=== PATIENT | male | born 1995 | race Caucasian/White ===

== ENCOUNTER 2022-12-28 08:27 | Outpatient (CLI) | payer OTHER, SELFPAY ==
[2022-12-28 19:03] LABS: Alanine Aminotransferase 30 U/L (6-50); Albumin Level 4.2 g/dL (3.5-5.1); Alkaline Phosphatase 66 U/L (38-126); Anion Gap 5 mmol/L (8-16); Aspartate Amino Transferase 47 U/L (17-59); Bilirubin,Total 0.4 mg/dL (0.2-1.3); Blood Urea Nitrogen 14 mg/dL (9-20); Calcium 8.8 mg/dL (8.4-10.2); Carbon Dioxide 30 mmol/L (22-30); Chloride 105 mmol/L (98-107); Cholesterol 142 mg/dL (0-200); Estimated Glomerular Filt Rate > 60; Glucose 85 mg/dL (65-110); HDL Direct 51 mg/dL; Potassium 3.9 mmol/L (3.4-5.0); Sodium 140 mmol/L (137-145); Triglycerides 61 mg/dL (<150)
[2022-12-28 19:14] LABS: Basophils Absolute Auto 0.1 K/mm3 (0.0-0.1); Basophils Percent Auto 1.3 % (0.2-1.2); Eosinophils Absolute Auto 0.4 K/mm3 (0-0.3); Eosinophils Percent Auto 6.9 % (0-4.4); Hematocrit 35.7 % (42.0-52.0); Hemoglobin 10.6 g/dL (14.0-18.0); Immature Granulocyte Absolute 0.01 K/mm3 (0.00-0.031); Immature Granulocyte Percent A 0.2 % (0-0.5); LDL Cholesterol Direct 66 mg/dL; Lymphocytes Percent Auto 29.7 % (18.3-44.2); Mean Corpuscular HGB Conc 29.7 g/dl (32-36); Mean Corpuscular Volume 80.8 fl (80-100); Mean Platelet Volume 9.8 fl (7.4-10.4); Monocytes Absolute Auto 0.6 K/mm3 (0.1-0.6); Monocytes Percent Auto 11.1 % (2.6-8.5); Neutrophils Absolute Auto 2.7 K/mm3 (1.3-6.7); Neutrophils Percent Auto 50.8 % (45.5-73.1); Platelet Count Result 305 k/mm3 (150-375); Red Blood Count 4.42 M/mm3 (4.6-6.20); Red Cell Distribution Width 13.2 % (11.5-14.5); White Blood Count 5.4 K/mm3 (4.5-10.0)
[2022-12-28 20:43] LABS: Hypochromasia 1+ (NORMAL); Platelet Estimate Adequate (Adequate); Schistocytes None Seen (NORMAL)
== END 2022-12-28 08:28 | disposition home or self-care (01) ==
PROVIDERS: PCP Family Medicine; Visit Provider Family Medicine
DX: Z00.00 Encounter for general adult medical examination without abnormal findings (principal); G57.90 Unspecified mononeuropathy of unspecified lower limb
CPT/HCPCS: 36415; 80053; 80061; 82607; 85025

== ENCOUNTER 2023-06-12 08:23 | Outpatient (CLI) | payer OTHER, SELFPAY ==
[2023-06-12 19:47] LABS: Hematocrit 34.7 % (42.0-52.0); Mean Corpuscular HGB Conc 28.8 g/dl (32-36); Mean Corpuscular Hemoglobin 22.1 pg (26-34); Mean Corpuscular Volume 76.8 fl (80-100); Mean Platelet Volume 9.9 fl (7.4-10.4); Platelet Count Result 346 k/mm3 (150-375); Red Blood Count 4.52 M/mm3 (4.6-6.20); Red Cell Distribution Width 21.9 % (11.5-14.5); White Blood Count 7.1 K/mm3 (4.5-10.0)
[2023-06-12 20:23] LABS: Alanine Aminotransferase 48 U/L (6-50); Albumin Level 4.5 g/dL (3.5-5.1); Alkaline Phosphatase 75 U/L (38-126); Aspartate Amino Transferase 43 U/L (17-59); Bilirubin,Total 0.4 mg/dL (0.2-1.3)
== END 2023-06-12 08:24 | disposition home or self-care (01) ==
LOC: ANHBWCLAB 08:23
PROVIDERS: PCP Family Medicine; Visit Provider Family Medicine
DX: D64.9 Anemia, unspecified (principal); F41.9 Anxiety disorder, unspecified; G57.90 Unspecified mononeuropathy of unspecified lower limb; K51.90 Ulcerative colitis, unspecified, without complications; B35.1 Tinea unguium
CPT/HCPCS: 36415; 80076; 85027

== ENCOUNTER 2025-03-07 15:48 | Outpatient (CLI) | payer OTHER, SELFPAY ==
--- NOTE | ~2025-03-07 | XR_ITS ---
EXAMINATION: XR chest 2V, 03/07/2025 16:00 CDT HISTORY: R05.3 - Chronic cough COMPARISON: No comparisons available. Technique: 2 views obtained. Findings: The lungs are clear, no effusion. No pneumothorax. Heart is normal size. Mediastinal and hilar contours are within normal limits. Bony thorax no acute abnormality. Impression: No acute cardiopulmonary abnormality. Reviewed, dictated and finalized at location A. Impression: No acute cardiopulmonary abnormality.
--- OUTSIDE RECORDS SUMMARY | 2025-03-07 16:12 | XMS_ITS | Clinical Summary ---
Author Organization [facility] Address [address] [place] [address] Phone Care Team Providers Care Cover Mat Machine Operator Name Role Phone Quinton Bates MD Unavailable Naseem Raymundo MD Primary Care Provider [phone] Allergies Active Allergy Reactions Criticality Noted Date Comments Azathioprine Hives,Shortness of Breath,Swelling High 12/07/2015 Nsaids Unknown 11/20/2024 Medications acetaminophen (TYLENOL) 500 MG Tablet Take by mouth. Active Calcium Carb-Cholecalci ferol 600-10 MG-MCG Tablet Take 1 Tablet by mouth daily. Active Cyanocobalamin (VITAMIN B-12) 1000 MCG Tablet Take by mouth. Active ferrous sulfate 325 (65 Fe) MG Tablet Take by mouth. 03/10/2022 Active Loperamide HCl (IMODIUM) 2 MG Tablet Take 4 mg by mouth. 04/19/2022 Active metroNIDAZOLE (FLAGYL) 500 MG Tablet 03/28/2022 Active oxyCODONE (ROXICODONE) 5 MG Tablet Take by mouth. 05/12/2022 Active Pediatric Multiple Vitamins (Chewable [facility]) Chewable Tablet Take 1 Tablet by mouth. Active traZODone (DESYREL) 50 MG Tablet Take 0.5 Tablets by mouth nightly. 15 Tablet 2 07/14/2022 Active busPIRone (BUSPAR) 5 MG Tablet Take 1 Tablet by mouth 2 times daily. 60 Tablet 2 07/14/2022 Active Active Problems Problem Noted Date Diagnosed Date Ileostomy status 03/30/2021 Ulcerative colitis 11/05/2015 Overview (03/30/2021): H/O TOTAL COLECTOMY Resolved Problems Problem Noted Date Diagnosed Date Resolved Date Colitis 09/17/2015 03/30/2021 Immunizations Immunization Administration Dates Next Due Covid-19, Mrna, Lnp-s, PF, 1 00 mcg/0.5 mL Dose (Moderna) 07/07/2020 TDAP Vaccine 06/26/2009 Family History Medical History Relation Name Comments No Known Problems Brother No Known Problems Father No Known Problems Mother No Known Problems Sister Relation Name Status Comments Brother Alive Father Mother Alive Sister Alive Social History Tobacco Use Types Packs/Day Years Used Date Smoking Tobacco: Former Cigars Smokeless Tobacco: Never Tobacco Cessation:Counseling Given: Not Answered Alcohol Use Standard Drinks/Week Comments Yes 0 (1 standard drink = 0.6 oz pur e alcohol) occasionally PHQ-2 Answer Date Recorded Total Score - Questions 1-9 0 10/2020 Sexually Active Control Partners Comments Yes Sex and Gender Information Value Date Recorded Sex Assigned at Not on file Legal Sex Male 11:28 PM CDT Gender Identity Not on file Sexual Orientation Not on file Last Filed Vital Signs Vital Sign Reading Time Taken Comments Blood Pressure 120/68 11/21/2024 1:30 AM CDT Pulse 76 11/21/2024 1:30 AM CDT Temperature 36.2 C (97.2 F) 11/21/2024 1:26 AM CDT Respiratory Rate 13 11/21/2024 1:30 AM CDT Oxygen Saturation 100% 11/21/2024 1:30 AM CDT Inhaled Oxygen Concentration - - Weight 99.8 kg (220 lb) 11/20/2024 7:33 PM CDT Height 177.8 cm (5' 10) 11/20/2024 7:33 PM CDT Body Mass Index 31.57 11/20/2024 7:33 PM CDT Plan of Treatment Health Maintenance Due Date Last Done Comments Hepatitis B Immunization (1 of 3 - 19+ 3-dose series) 2012 Td Immunization Every 10 Years (Adults With 1 Tdap) 06/26/2019 06/26/2009 Human Papillomavirus (HPV) Immunization (1 - 3-dose SCDM series) 2020 SARS-COV-2 Immunization ( season) 2025 07/03/2021, 08/07/2020, 07/20/2020, Additional history exists Respiratory Syncytial Virus (RSV) Immunization (Adult) (1 - 1-dose 75+ series) 2068 Hepatitis C Virus (HCV) Screening Completed 01/26/2016, 01/06/2016, 12/07/2015 Influenza Immunization Discontinued Meningococcal Immunization (ACWY) Aged Out No longer eligible based on patient's age to complete this topic Pneumococcal Immunization Combined Discontinued Rotavirus Immunization Aged Out No lo nger eligible based on patient's age to complete this topic Procedures Procedure Name Priority Date/Time Associated Diagnosis Comments HEPATITIS PANEL ACUTE (AHP) Early AM 01/26/2016 1:33 PM CDT from Last 3 Months or Most Recently Relevant to Health Maintenance Results * Hepatitis Panel Acute (AHP) (01/26/2016 1:33 PM CDT) HEPATITIS A IGM ANTIBODY NON DETECTED NON DETECTED 01/26/2016 10:41 PM CDT [facility] Comment: IGM Antibodies to HAV not detected. Does not exclude early acute or recovered HAV infection. HEP B CORE AB (IGM) NON DETECTED NON DETECTED 01/26/2016 10:41 PM CDT [facility] Comment: IGM anti-HBC not detected. Does not exclude the possibility of exposure to or infection with HBV. HEPATITIS B SURFACE ANTIGEN NON DETECTED NON DETECTED 01/26/2016 10:41 PM CDT [facility] hepatitis C antibody 0.14 <1 S/CO 01/26/2016 10:41 PM CDT [facility] Comment: Signal/Cutoff ratio < 0.79 is Nondetected Signal/Cutoff ratio 0.80-0.99 is Grayzone Signal/Cutoff ratio > 0.99 is Detected Supplemental assays are recommended if signal/cutoff ratio is >/=1.00. Signal/cutoff ratio result >/= 5.00 is 97% predictive of positivity for recombinant immunoblot assay (RIBA) and will be reported to the [place] [facility] Public [facility] as required. Blood specimen (specimen) Venipuncture / Unknown 01/26/2016 1:33 PM CDT 01/26/2016 1:48 PM CDT us Parker De Leon Michele DO HEMATOLOGY ORDERABLES Final Res ult [facility] [address] [place] [address], [place] from Last 3 Months or Most Recently Relevant to Health Maintenance Insurance [facility] Advance Directives * Full Code (Latest Code Status on File) Date Activated Date Inactivated Comments 09/05/2015 3:24 PM 09/08/2015 2:31 PM Full Code: FULL ARREST: Attempt Resuscitation/CPR and use intubation and mechanical ventilation as indicated. PRE-ARREST: Use all measures to stabilize patient. Care Teams Cover Mat Machine Operator Relationship Specialty Start Date End Date Naseem Raymundo MD PCP - General Family Medicine 11/20/24 Quinton Bates MD Gastroenterology 10/26/15
--- OUTSIDE RECORDS SUMMARY | 2025-03-07 16:12 | XMS_ITS | Clinical Summary ---
Author Organization [facility] Address [address] [address] [place] [address] Phone Care Team Providers Care Stock Clerk Name Role Phone Naseem Raymundo MD Primary Care Provider [phone] Allergies Active Allergy Reactions Criticality Noted Date Comments Azathioprine Shortness of Breath/Wheezing,Othe r (See Comments) High 06/07/2021 SWEATING Nsaids (Non-Steroidal Anti-Inflammatory Drug) Other (See Comments) Low 05/06/2022 List as allergy, cannot take because of Gastric Sleeve. Medications ferrous sulfate 325 mg (65 mg iron) tablet Take 1 Tablet (325 mg) by mouth 2 times daily. 180 Tablet 03/10/20 22 Active loperamide (IMODIUM) 2 mg Tablet Take 2 Tablets (4 mg) by mouth 4 times daily as needed for Diarrhea/Loose Stools. 240 Tablet 3 04/19/20 22 Active Simethicone 125 mg Tablet Take 125 mg by mouth every 4 hours as needed (gas). 180 Tablet 3 04/19/20 22 Active oxyCODONE (ROXICODONE) 5 mg tablet Take 5 mg by mouth. 05/12/20 22 Active multivitamin (CHEWABLE-ESTEFANIA) Tablet, Chewable Take 1 Tablet by mouth. Active cyanocobalamin 1,000 mcg Tablet Take 1,000 mcg by mouth. Active acetaminophen (TYLENOL) 500 mg tablet Take 1,000 mg by mouth. Active CALCIUM ORAL Take by mouth. Ac tive busPIRone (BUSPAR) 10 mg tablet Take 10 mg by mouth 2 times daily. 10/01/19 23 Active dicyclomine (BENTYL) 20 mg tablet Take 1 Tablet (20 mg) by mouth 4 times daily before meals and at bedtime. 180 Tablet 3 12/13/19 23 Active metroNIDAZOLE (FLAGYL) 500 mg tablet 01/30/20 23 Active traMADoL (ULTRAM) 50 mg tablet Take 50 mg by mouth. 10/14/19 23 Active hydrocortisone acetate (ANUSOL-HC) 25 mg Suppository Insert 1 Suppository (25 mg) by rectum daily at bedtime. 24 Suppository 07/15/19 25 Active ciprofloxacin HCl (CIPRO) 500 mg tablet Take 1 Tablet (500 mg) by mouth 2 times daily. 60 Tablet 3 09/24/19 25 Active metroNIDAZOLE (FLAGYL) 500 mg tablet Take 1 Tablet (500 mg) by mouth 3 times daily. 90 Tablet 3 09/24/19 25 Active Active Problems Problem Noted Date Diagnosed Date Iron deficiency anemia 12/04/2024 Ileostomy status 03/30/2021 Anemia, normocytic normochromic 01/29/2016 Ulcerative colitis 11/05/2015 Overview (03/04/2022): H/O TOTAL COLECTOMY Encounters Date Type Department Care Team Description 02/28/2025 Results Follow-Up [facility] [address] [place] [address] [facility] [address] [place] [id number] Tonja Gonzalez MD CBC WITH DIFFERENTIAL, FERRITIN, IRON, TIBC, AND PERCENT SATURATION 02/25/2025 External Device Data STL ABSTRACTION Provider, Abstract 02/11/2025 External Device Data STL ABSTRACTION Provider, Abstract 01/08/2025 2:50 PM CDT - 01/08/2025 11:59 PM CDT Hospital Encounter [facility] 2nd Fl [address] [place] [address] Audelia Bonilla, ROBERT Infusion Chair 9, 2nd Floor [facility] Discharge Disposition: Home or Self Care 01/07/2025 8:00 AM CDT Procedure visit [facility] Gastroenterology [address] [place] [address] Other iron deficiency anemia (Primary Dx) 01/07/2025 Chart Note [facility] Gastroenterology [facility] [address] [facility] [address] [place] [address] Tonja Gonzalez MD 01/07/2025 Abstract [facility] Gastroenterology [facility] [address] [facility] [address] [place] [address] Tonja Gonzalez MD 12/30/2024 3:00 PM CDT - 12/30/2024 11:59 PM CDT Hospital Encounter [facility] Infusion Center 2nd Fl [address] [place] [address] Audelia Bonilla, ANP Infusion Chair 2, 2nd Floor [facility] Discharge Disposition: Home or Self Care 12/23/2024 2:16 PM CDT - 12/23/2024 11:59 PM CDT Hospital Encounter [facility] Infusion Center 2nd Fl [address] [place] [address] Audelia Bonilla, ANP Infusion Chair 4, 2nd Floor [facility] Discharge Disposition: Home or Self Care 12/09/2024 Telephone [facility] Gastroenterology [facility] [address] [facility] [address] [place] [id number] Tonja Gonzalez MD video capsule from Last 3 Months Immunizations Immunization Administration Dates Next Due (ADACEL/BOOSTRIX)(10 YR UP) TDAP VACCINE, 0.5ML, IM 06/26/2009 (SPIKEVAX) (12 YRS UP PRIMAR Y SERIES) COVID-19 VACCINE - MRNA-1273(PF) 100 MCG/0.5 ML IM SUSP 08/10/2020,07/20/2020,07/07/2020 Family History Medical History Relation Name Comments Other Father suicide Healthy Mother Colon Cancer Neg Hx Relation Name Status Comments Father suicide Mother Alive Social History Tobacco Use Types Packs/Day Years Used Date Smoking Tobacco: Never Smokeless Tobacco: Never Tobacco Cessation:Counseling Given: Not Answered Alcohol Use Standard Drinks/Week Comments Yes 0 (1 standard drink = 0.6 oz pur e alcohol) socially Feeling Safe Answer Date Recorded Are you in a relationship wi th someone who hurts you emotionally and/or physically? No 12/30/2024 Sex and Gender Information Value Date Recorded Sex Assigned at Not on file Legal Sex Male 1:33 PM PARARESCUE CRAFTSMAN Gender Identity Not on file Sexual Orientation Not on file Last Filed Vital Signs Vital Sign Reading Time Taken Comments Blood Pressure 132/71 01/08/2025 2:52 PM CDT Pulse 69 01/08/2025 2:52 PM CDT Temperature 36.6 C (97.8 F) 01/08/2025 2:52 PM CDT Respiratory Rate 18 01/08/2025 2:52 PM CDT Oxygen Saturation 100% 11/29/2024 1:24 PM CDT Inhaled Oxygen Concentration - - Weight 99.2 kg (218 lb 9.6 oz) 11/29/2024 11:43 AM CDT Height 177.8 cm (5' 10) 11/29/2024 11:43 AM CDT Body Mass Index 31.37 11/29/2024 11:43 AM CDT Plan of Treatment Health Maintenance Due Date Last Done Comments HEPATITIS B VACCINES (1 of 3 - 19+ 3-dose series) 2012 DTAP/TDAP/TD VACCINES (2 - T d or Tdap) 06/26/2019 06/26/2009 HPV VACCINES (1 - 3-dose SCD M series) 2020 INFLUENZA VACCINE (#1) 2025 COVID-19 Vaccine ( - 2024-2 6 season) 2025 08/10/2020, 07/20/2020, 07/07/2020 Medical Devices Implanted Type Area Field Crew Chief Device Identifier Shelf Expiration Date Model / Serial / Lot Seamguard Endogia 60 Blk [id number] - [id number] Implanted:Qt y: 2 on 06/07/2021 by Giovani Palm MD at [facility] Biological N/A: [employer] [id number] 02/18/2024 [id number] [id number] / / [id number] Seamguard Endogia 60 Prpl [id number] - [id number] Implanted:Qt y: 2 on 06/07/2021 by Giovani Palm MD at [facility] [employer] N/A: Stomach [employer] [id number] 02/22/2024 [id number] [id number] / / [id number] Procedures Procedure Name Priority Date/Time Associated Diagnosis Comments IRON, TIBC, AND PERCENT SATURATION Routine 02/22/2025 11:22 AM CDT Other iron deficiency anemia FERRITIN Routine 02/22/2025 11:22 AM CDT Other iron deficiency anemia CBC WITH DIFFERENTIAL Routine 02/22/2025 11:22 AM CDT Other iron deficiency anemia from Last 3 Months Results * (ABNORMAL) IRON, TIBC, AND PERCENT SATURATION (02/22/2025 11:22 AM CDT) Pathologist [facility] IRON 21(L) 50 - 180 mcg/dL [facility] TIBC 398 250 - 425 mcg/dL (calc) [facility] IRON % SATURATION 5(L) 20 - 48 % (calc) [facility] Comment: Test Performed at: [facility] [address] [place] [address] Maliha Nino MD Blood 02/22/2025 11:2 2 AM CDT 02/22/2025 11:22 AM CDT us Tonja Gonzalez MD CHEMISTRY ORDERABLES Brooke l Result [facility] [phone] [facility] [address] [place] [address] * (ABNORMAL) CBC WITH DIFFERENTIAL (02/22/2025 11:22 AM CDT) Pathologist [facility] WBC 5.4 3.8 - 10.8 Thousand/u L [facility] RBC 4.64 4.20 - 5.80 Million/uL [facility] HEMOGLOBIN 11.0(L) 13.2 - 17.1 g/dL [facility] HEMATOCRIT 37.7(L) 38.5 - 50.0 % [facility] MCV 81.3 80.0 - 100.0 fL [facility] MCH 23.7(L) 27.0 - 33.0 pg [facility] MCHC 29.2(L) 32.0 - 36.0 g/dL [facility] Comment: For adults, a slight decrease in the calculated MCHC value (in the range of 30 to 32 g/dL) is most likely not clinically significant; however, it should be interpreted with caution in correlation with other red cell parameters and the patient's clinical condition. RDW 17.1(H) 11.0 - 15.0 % [facility] PLATELETS 364 140 - 400 Thousand/u L [facility] MPV 9.9 7.5 - 12.5 fL [facility] NEUTROPHIL ABSOLUTE 3,100 1,500 - 7,800 cells/uL [facility] LYMPHOCYTE ABSOLUTE 1,377 850 - 3,900 cells/uL [facility] MONOCYTE ABSOLUTE 605 200 - 950 cells/uL [facility] EOSINOPHIL ABSOLUTE 259 15 - 500 cells/uL [facility] BASOPHILS ABSOLUTE 59 0 - 200 cells/uL [facility] NEUTROPHIL 57.4 % [facility] LYMPHOCYTES 25.5 % [facility] MONOCYTE 11.2 % [facility] EOSINOPHILS 4.8 % [facility] BASOPHILS 1.1 % [facility] Comment: Test Performed at: [facility] [address] [place] [id number] Maliha Nino MD Blood 02/22/2025 11:2 2 AM CDT 02/22/2025 11:22 AM CDT us Tonja Gonzalez MD HEMATOLOGY ORDERABLES Fin al Result [facility] [phone] [facility] [address] [place] [id number] * (ABNORMAL) FERRITIN (02/22/2025 11:22 AM CDT) FERRITIN 5(L) 38 - 380 ng/mL [facility] Comment: Test Performed at: [facility] [address] [place] [address] Maliha Nino MD Blood 02/22/2025 11:2 2 AM CDT 02/22/2025 11:22 AM CDT us Tonja Gonzalez MD CHEMISTRY ORDERABLES Brooke l Result [facility] [phone] [facility] [address] [address] from Last 3 Months Insurance RX [employer] [place] [employer] (INTERNAL) [facility] [id number] Member Subscriber Plan / Payer (Ef fective 2021-Present) Name:Lukas Almazan Relation to Subscriber:Self Name:Lukas Almazan Payer ID:[id number] (NAIC) Type:O Address: [facility] [id number] [employer] Advance Directives For more information, please contact: [phone] * Full Code (Latest Code Status on File) Date Activated Date Inactivated Comments 11/29/2024 11:59 AM 11/29/2024 4:22 PM * Full Code Date Activated Date Inactivated Comments 03/30/2023 12:35 PM 03/30/2023 4:25 PM * Full Code Date Activated Date Inactivated Comments 06/07/2021 9:12 AM 06/08/2021 7:03 PM * Full Code Date Activated Date Inactivated Comments 06/07/2021 7:20 AM 06/07/2021 9:12 AM Care Teams Stock Clerk Relationship Specialty Start Date End Date Naseem Raymundo MD [address] [place] [address] PCP - General Family Practice 03/30/23"
--- OUTSIDE RECORDS SUMMARY | 2025-03-07 16:12 | XMS_ITS | Clinical Summary ---
Author Organization [facility] [address] Address [address] [place] [address] Care Team Providers Care Electron Gun Inspector Name Role Phone Tim Villanueva MD Unavailable [phone] Tonja Gonzalez MD Unavailable [phone] Naseem Raymunod MD Primary Care Provider [phone] Allergies Active Allergy Reactions Criticality Noted Date Comments Azathioprine Hives,Shortness of breath,Swelling High 12/07/2015 Nsaids (Non-Steroidal Anti-Inflammatory Drug) Other (See comments) Low 05/06/2022 List as allergy, cannot take because of Gastric Sleeve. Medications ferrous sulfate 325 mg (65 mg of elemental iron) tabletIndicati ons:Iron Deficiency Anemia Take 1 tablet (325 mg total) by mouth 2 (two) times a day 2 Active acetaminophen (TYLENOL) 500 mg tabletIndicati ons:Pain Take 2 tablets (1,000 mg total) by mouth every 6 (six) hours as needed for pain Active multivitamin tablet,chewabl eIndications:V itamin Deficiency Prevention Take 1 tablet by mouth every morning Centrum Silver Active calcium carbonate-mary min D3 (CALTRATE 600 + D) 1500 mg (600 mg elemental) -400 units per tabletIndicati ons:Prevention of Vitamin D Deficiency Take 1 tablet by mouth every morning Active cyanocobalamin (Vitamin B-12) 1,000 mcg tabletIndicati ons:Prevention of Vitamin B12 Deficiency Take 1 tablet (1,000 mcg total) by mouth every morning Active traMADoL (ULTRAM) 50 mg tablet Take 1 tablet (50 mg total) by mouth every 8 (eight) hours as needed for pain 15 tablet 3 Active busPIRone (BUSPAR) 10 mg tablet Take 1 tablet (10 mg total) by mouth 2 (two) times a day 3 Active mesalamine (Canasa) 1,000 mg suppositoryInd ications:Proct itis Insert 1 suppository (1,000 mg total) into the rectum nightly for 21 days Insert one suppository nightly for three weeks 21 suppository 4 Active Active Problems Problem Noted Date Diagnosed Date 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 Status post gastrointestinal surgery, follow-up exam 08/30/2022 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/28/2022 Ulcerative proctitis without complication 2021 Resolved Problems Problem Noted Date Diagnosed Date Resolved Date Ileostomy in place 08/08/2022 3 Ileostomy care 01/11/2022 08/10/2022 Surgical History Surgery Date Site/Laterality Comments SLEEVE GASTROPLASTY 06/07/2021 Laparoscopic vertical sleeve gastrectomy COLON SURGERY 10/01/2018 laparoscopic colectomy with end ostomy and Amanda's pouch, mobilization of splenic flexure IR PICC LINE PLACEMENT > 5 YEARS 05/13/2022 N/A COLON SURGERY 05/06/2022 Completion proctectomy with creation of ileal anal pouch anastomosis and diverting loop ileostomy ILEOSTOMY CLOSURE 08/08/2022 Medical History Medical History Date Comments Ulcerative colitis GERD (gastroesophageal reflux disease) Ileostomy care ([facility]) 01/11/[address] ([facility]) 08/08/2022 Family History Medical History Relation Name Comments Anesthesia problems Neg Hx Social History Tobacco Use Types Packs/Day Years Used Date Smoking Tobacco: Some Days Cigars Passive Smoke Exposure: Never Smokeless Tobacco: Never Tobacco Cessation:Ready to Q uit: Not Asked; Counseling Given: Not Answered Alcohol Use Standard Drinks/Week Comments No 0 (1 standard drink = 0.6 oz pur e alcohol) OASIS D0700: Social Isolation Answer Da te Recorded Frequency of experiencing loneliness or isolatio n Never 07/21/2022 AUDIT-C Answer Date Recorded Q1: How often do you have a drink containing alcohol? Never 08/17/2023 Q2: How many drinks containi ng alcohol do you have on a typical day when you are drinking? Patient does not drink Q3: How often do you have si x or more drinks on one occasion? Never 08/17/2023 Personal Safety Answer Date Recorded Have you ever been in or are you currently in a harmful physical or emotional relationship or is someone making you feel afraid or unsafe? Denies 08/17/2023 Sex and Gender Information Value Date Recorded Sex Assigned at Not on file Legal Sex Male 11:01 AM MANUSCRIPT READER Gender Identity Male 04/13/2022 2:35 PM CDT Sexual Orientation Straight 04/13/2022 2: 35 PM CDT Obstetrics History Last Filed Vital Signs Vital Sign Reading Time Taken Comments Blood Pressure 109/68 08/17/2023 11:40 AM MANUSCRIPT READER Pulse 82 08/17/2023 11:45 AM MANUSCRIPT READER Temperature 36 C (96.8 F) 08/17/2023 11:10 AM MANUSCRIPT READER Respiratory Rate 24 08/17/2023 11:45 AM MANUSCRIPT READER Oxygen Saturation 99% 08/17/2023 11:45 AM MANUSCRIPT READER Inhaled Oxygen Concentration - - Weight 91.9 kg (202 lb 9.6 oz) 07/12/2023 9:01 A M MANUSCRIPT READER Height 177.8 cm (5' 10) 07/12/2023 9:01 AM MANUSCRIPT READER Body Mass Index 29.07 07/12/2023 9:01 AM MANUSCRIPT READER Plan of Treatment Health Maintenance Due Date Last Done Comments Depression Screening 1993 Hepatitis C Screening 1993 Varicella Vaccines (1 of 2 - 13+ 2-dose series) 2006 Hepatitis B Screening 10/01/2011 Regular Well Visit/Exam 18-64 10/01/2011 Pneumococcal vaccine <65 (1 of 2 - PCV) 2012 DTaP/Tdap/Td Vaccine (2 - Td or Tdap) 06/26/2019 06/26/2009 HPV Vaccines (1 - 3-dose SCD M series) 2020 Covid-19 Vaccine (5 - 2024-2 6 season) 2025 07/03/2021, 08/07/2020, 07/20/2020, Additional history exists Influenza Vaccine (#1) 2025 Insurance [facility] [employer], [address] [facility] CHOICE PLUS [facility] HMO/PPO Address: [address] [place] [address] [facility] CHOICE PLUS [facility] HMO/PPO Address[address] [place] [address] [facility] [employer], [facility] [facility] CHOICE PLUS [facility] HMO/PPO Address: [address] [place] [address] [place] [address] Advance Directives For more information, please contact: [phone] * Full Code (Latest Code Status on File) Date Activated Date Inactivated Comments 08/17/2023 10:14 AM 08/17/2023 3:52 PM * Full Code Date Activated Date Inactivated Comments 08/08/2022 1:13 PM 08/12/2022 6:09 PM * Full Code Date Activated Date Inactivated Comments 05/06/2022 1:59 PM 05/25/2022 4:59 PM Care Teams Electron Gun Inspector Relationship Specialty Start Date End Date Naseem Raymundo MD [address] [place] [address] PCP - General Family Practice 08/08/22 Tim Villanueva MD [phone] [place] [address] Surgeon Colon and Rectal Surgery 03/28/22 Tonja Gonzalez MD [address] [place] [address] Health And Wellness Sales Consultant Gastroenterology 03/28/22
--- OUTSIDE RECORDS SUMMARY | 2025-03-07 16:12 | XMS_ITS | Encounter Summary ---
Author Organization [facility] Address [address] [place] [address] Care Team Providers Care Aerotriangulation Specialist Name Role Phone Naseem Raymundo MD Primary Care Provider [phone] Encounter Details Date Type Department Care Team (Latest Contact Info) Description 02/28/2025 Results Follow-Up [facility] [id number] [place] [address] [address] [place] [address] [place] [id number] [facility] [address] [place] [address] CBC WITH DIFFERENTIAL, FERRITIN, IRON, TIBC, AND PERCENT SATURATION Social History Tobacco Use Types Packs/Day Years Used Date Smoking Tobacco: Never Smokeless Tobacco: Never Alcohol Use Standard Drinks/Week Comments Yes 0 (1 standard drink = 0.6 oz pur e alcohol) socially Feeling Safe Answer Date Recorded Are you in a relationship wi th someone who hurts you emotionally and/or physically? No 12/30/2024 Sex and Gender Information Value Date Recorded Sex Assigned at Not on file Legal Sex Male 1:33 PM LOBSTER FISHERMAN Gender Identity Not on file Sexual Orientation Not on file documented as of this encounter Miscellaneous Notes * Result Encounter Note - Tonja Gonzalez MD - 02/28/2025 1:35 PM CDT [facility] Plan of Treatment Not on file documented as of this encounter Visit Diagnoses Not on filedocumented in this encounter Care Teams Aerotriangulation Specialist Relationship Specialty Start Date End Date Naseem Raymundo MD [address] [place] [id number] PCP - General Family Practice 03/30/23 documented as of this encounter
--- OUTSIDE RECORDS SUMMARY | 2025-03-07 16:12 | XMS_ITS | Clinical Summary ---
Author Organization [facility] Address [address] [facility] [place] [address] Care Team Providers Care Paradi Tender Name Role Phone Paul Zuniga MD Primary Care Provider Shavon Harvey RN Unavailable Unavailable Tonja Gonzalez MD Unavailable [phone] Source Comments [facility],non-owned Affiliates and Associated Physician Practices is amultiple site organization consisting of ambulatory clinics and hospital sitesin [place], [place], [place] and [place]. This disclosure is being madepursuant to the Care Everywhere program and may not contain all information available regarding this patient. Last updated 18.[facility] Allergies Active Allergy Reactions Criticality Noted Date Comments Azathioprine Skin Reactions,Other ,Shortness of Breath,Swelling High 12/07/2015 Medications * Be aware that medications may not be up to date on this document. Alwaysverify current medications with the patient. traMADol (ULTRAM) 50 MG tablet Take 1 tablet by mouth every 6 hours as needed (Pain) 120 tablet 10/05/2018 Active Loperamide (IMODIUM A-D) 2 MG tablet Take 1 tablet by mouth 4 times daily as needed for Diarrhea 150 tablet 11 10/31/2018 Active Active Problems Problem Noted Date Diagnosed Date Ulcerative colitis with complication 09/23/2017 Colitis 07/12/2017 Overview (09/11/2018): Overview: 08/2015 - admitted to [facility]. CT with inflammation in distal colon. Flex sig - mod-severe colitis. Dr. Bates (his GI doc) suspected that the patient had UC although Pathology results were inconclusive as to the cause of the colitis. DC on pentasa and steroids. Changed to Delzicol 800 tid as an outpatient then added Azathioprine 100mg daily and Entocort. Azathioprine caused skin rash, chest pain, and shortness of breath so was DCd. 12/17/15 - Colonoscopy mild patchy colitis in the sigmoid. Path shows crypt architectural distortion and basal plasmacytosis. Consistent with UC. January 13 2016- Started on Remicade 5mg/kg 01/26/16 - admitted to [facility] with increased lower abdominal pain, watery diarrhea and bloody stools. Hgb 7s. Treated with solumedrol/flagyl. Left AMA to come to [facility]. 08/02/16 - ANSER IFX levels 0.0, Ab 12.6. Stopping IFX and starting Humira (Insurance mandated humira to be tried first prior to entyvio). Still on prednisone 30mg daily. 08/2016- started humira, still on prednisone 01/2017 - 50% better but still on prednisone 20-30mg daily 02/2017 ANSER ADA Level 4.1 ab 2.5. He is not responding. Switch to Entyvio q8 weeks. 08/2015 - admitted to [facility]. CT with inflammation in distal colon. Flex sig - mod-severe colitis. Dr. Bates (his GI doc) suspected that the patient had UC although Pathology results were inconclusive as to the cause of the colitis. DC on pentasa and steroids. Changed to Delzicol 800 tid as an outpatient then added Azathioprine 100mg daily and Entocort. Azathioprine caused skin rash, chest pain, and shortness of breath so was DCd. 12/17/15 - Colonoscopy mild patchy colitis in the sigmoid. Path shows crypt architectural distortion and basal plasmacytosis. Consistent with UC. January 13 2016- Started on Remicade 5mg/kg 01/26/16 - admitted to [facility] with increased lower abdominal pain, watery diarrhea and bloody stools. Hgb 7s. Treated with solumedrol/flagyl. Left AMA to come to [facility]. 08/02/16 - ANSER IFX levels 0.0, Ab 12.6. Stopping IFX and starting Humira (Insurance mandated humira to be tried first prior to entyvio). Still on prednisone 30mg daily. 08/2016- started humira, still on prednisone 01/2017 - 50% better but still on prednisone 20-30mg daily 02/2017 ANSER ADA Level 4.1 ab 2.5. He is not responding. Switch to Entyvio q8 weeks. Abdominal pain 01/29/2016 Anemia, normocytic normochromic 01/29/2016 Crohn's colitis 01/28/2016 Immunizations Immunization Administration Dates Next Due TDAP (7yrs+) 06/26/2009 Family History Medical History Relation Name Comments None Known Brother 22 Status: Alive None Known Father 44 Status: Alive None Known Mother 50 Status: Alive None Known Sister Status: Alive Relation Name Status Comments Brother 22 Alive Father 44 Mother 50 Alive Sister Social History Tobacco Use Types Packs/Day Years Used Date Smoking Tobacco: Never Smokeless Tobacco: Never Tobacco Cessation:Counseling Given: No Alcohol Use Standard Drinks/Week Comments Yes 1 (1 standard drink = 0.6 oz pur e alcohol) drinks 1-2 month Sex and Gender Information Value Date Recorded Sex Assigned at Male 03/04/2021 10:28 AM CDT 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 Gender Identity Male 03/04/2021 10:28 AM CDT Sexual Orientation Not on file Last Filed Vital Signs Vital Sign Reading Time Taken Comments Blood Pressure 130/84 03/11/2021 9:32 AM CDT Pulse 98 03/11/2021 9:32 AM CDT Temperature 36.8 C (98.3 F) 03/11/2021 9:32 AM CDT Respiratory Rate 20 03/11/2021 9:32 AM CDT Oxygen Saturation 98% 03/11/2021 9:32 AM CDT Inhaled Oxygen Concentration - - Weight 153.8 kg (339 lb) 03/11/2021 9:32 AM CDT Height 180.3 cm (5' 11) 03/11/2021 9:32 AM CDT Body Mass Index 47.28 03/11/2021 9:32 AM CDT Plan of Treatment Health Maintenance Due Date Last Done Comments Opioid Medication Agreement - Annual 1993 HIV SCREENING 2008 HEPATITIS B VACCINE (1 of 3 - 19+ 3-dose series) 2012 DTAP/TDAP/TD VACCINES (2 - Td or Tdap) 06/26/2019 06/26/2009 HPV VACCINE (1 - 3-dose SCDM series) 2020 DEPRESSION SCREENING 06/26/2024 COVID-19 VACCINE (2 - 2024- season) 2025 07/07/2020 INFLUENZA VACCINE (#1) 2025 ZOSTER VACCINE (1 of 2) 10/01/2043 HEPATITIS C SCREENING Completed 01/26/2016 , 01/26/2016, 01/26/2016, Additional history exists HIB VACCINE Aged Out No longer eligi ble based on patient's age to complete this topic MENINGOCOCCAL (Group B) VACCINE SHARED DECISION-MAKING Aged Out No longer eligible based on patient's age to complete this topic MENINGOCOCCAL GROUPS A/C/Y/W VACCINE Aged Out No longer eligible based on patient's age to complete this topic PNEUMOCOCCAL VACCINE Aged Out No long er eligible based on patient's age to complete this topic Goals Goal Patient Goal Type Associated Problems Recent Progress Patient-Stated? Author Medication Management General On track( 019 3:20 PM CDT) Ratna Long, RN Note: Expected end date: ongoing Interventions: Take all medications as prescribed Let your doctor know right away about any changes in your medications Make sure to request a refill of your medication at least one week prior to your last dose Insurance [facility] Advance Directives * Full Code (Latest Code Status on File) Date Activated Date Inactivated Comments 10/01/2018 8:35 PM 10/05/2018 5:42 PM Care Teams Paradi Tender Relationship Specialty Start Date End Date Paul Zuniga MD [address] [place] [address] PCP - General 04/22/17 Shavon Harvey, HUNG Registered Nurse Gastroenterology 01/04/18 Tonja Gonzalez MD [employer] Machine Operator Gastroenterology 01/04/18
== END 2025-03-07 15:49 | disposition home or self-care (01) ==
LOC: ANHIMG 15:55
PROVIDERS: PCP Family Medicine; Visit Provider Family Medicine
DX: R05.3 Chronic cough (principal)
CPT/HCPCS: 71046